=== PATIENT | male | born 1990 | race Two or more races ===

== ENCOUNTER 2022-05-08 12:06 | Emergency (ER) | payer OTHER, SELFPAY ==
--- NOTE | ~2022-05-08 | XR_ITS ---
EXAMINATION: XR KNEE, RIGHT CLINICAL INFORMATION: Right knee pain. COMPARISON: None available. TECHNIQUE: Four views of the right knee. FINDINGS: Bones and soft tissues are normal. No fracture or joint effusion. Alignment is anatomic. Joint spaces are well maintained. No abnormal soft tissue calcification. XR/XR knee RT 4V IMPRESSION: Unremarkable right knee.
--- NOTE | ~2022-05-08 | US_ITS ---
EXAMINATION: US VENOUS ULTRASOUND WITH DOPPLER LOWER EXTREMITY, RIGHT CLINICAL INFORMATION: Severe popliteal pain. COMPARISON: None available. TECHNIQUE: Ultrasound of the deep veins is performed from the hip to the calf with compression sonography and color and pulse Doppler assessment. Spectral analysis with color-flow imaging is performed. FINDINGS: There is normal venous compression and respiratory variation and augmented flow. The visualized common femoral vein, superficial femoral vein, profunda femoral vein, popliteal vein, and the trifurcation region shows no evidence of deep venous thrombosis. No right popliteal cyst. The soft tissues are unremarkable. If the patient's symptoms persist, followup ultrasound in 5 days 7 days might be of value to exclude proximal propagation from a non-visualized calf vein. US/US venous duplex LE RT IMPRESSION: No evidence for deep venous thrombosis in the visualized veins of the right lower extremity.
[2022-05-08 12:15] VITALS: BP 117/77; RESP 20; TEMP 36.8; O2SAT 16; BMI 31.7
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
[2022-05-08 12:59] VITALS: BP 106/69; PULSE 90; RESP 14; TEMP 36.8; O2SAT 98
[2022-05-08] MEDS: Ibuprofen 600 MG TABLET PO (13:06)
[2022-05-08] MEDS: oxyCODONE HCl Immed Release 5 MG TABLET PO ×2 (13:06→13:24)
[2022-05-08] MEDS: Acetaminophen 325 MG TABLET 975 MG PO (13:24)
== END 2022-05-08 16:24 | disposition home or self-care (01) ==
PROVIDERS: Emergency Provider Emergency Medicine
DX: S89.91XA Unspecified injury of right lower leg, initial encounter (principal); R60.0 Localized edema; R42 Dizziness and giddiness; W01.0XXA Fall on same level from slipping, tripping and stumbling without subsequent striking against object, initial encounter; Y93.9 Activity, unspecified; Y92.9 Unspecified place or not applicable; Y99.9 Unspecified external cause status
CPT/HCPCS: 73564; 93971; 99283; 99284

== ENCOUNTER 2022-05-29 07:37 | Outpatient (REF) | payer OTHER, SELFPAY | END 2022-05-29 07:38 | disposition home or self-care (01) | LOC: HO.HOSX 07:37 | PROVIDERS: Visit Provider Physician Assistant | DX: Z13.89 Encounter for screening for other disorder (principal) ==

== ENCOUNTER 2024-05-03 06:49 | Emergency (ER) | payer MEDICAID, SELFPAY ==
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
[2024-05-03 06:56] VITALS: BP 132/80; PULSE 99; RESP 20; TEMP 36.5; O2SAT 95; BMI 33.4
[2024-05-03 07:14] LABS: MANUAL DIFF FLAG NO
[2024-05-03 07:18] LABS: Basophils Absolute Auto 0.1 X10*3/uL (0.0-0.2); Basophils Percent Auto 0.6 % (0-2); Eosinophils Absolute Auto 0.3 X10*3/uL (0.0-0.4); Eosinophils Percent Auto 2.8 % (0-4); Hematocrit 43.8 % (42.0-52.0); Hemoglobin 15.6 g/dl (14.0-18.0); Imm Gran Abs Auto 0.03 X10*3/uL (0.00-0.03); Imm Gran Pct Auto 0.3 % (0.0-0.4); Lymphocytes Absolute Auto 3.6 X10*3/uL (1.2-4.9); Lymphocytes Percent Auto 30.4 % (20-40); Mean Corpuscular HGB Conc 35.6 g/dl (31.0-36.0); Mean Corpuscular Hemoglobin 32.3 pg (27.0-33.0); Mean Corpuscular Volume 90.7 fL (80.0-98.0); Mean Platelet Volume 9.4 fL (9.4-12.4); Monocytes Absolute Auto 0.9 X10*3/uL (0.1-1.2); Monocytes Percent Auto 7.8 % (2-11); Neutrophils Percent Auto 58.1 % (45-73); Platelet Count 404 X10*3/uL (160-400); Red Blood Count 4.83 X10*6/uL (4.60-5.80); Red Cell Distribution Width 13.3 % (11.0-16.0)
[2024-05-03 07:37] LABS: Alanine Aminotransferase 49 U/L (0-40); Albumin Level 4.1 g/dL (3.5-5.0); Alkaline Phosphatase 31 U/L (39-117); Anion Gap 13 (12-20); Aspartate Amino Transferase 22 U/L (5-37); Bilirubin Direct 0.1 mg/dL (0.0-0.5); Bilirubin Total 0.3 mg/dL (0.0-1.0); Blood Urea Nitrogen 12 mg/dL (9-16); Calcium 9.5 mg/dL (8.4-10.2); Carbon Dioxide 26 mmol/L (22-29); Chloride 104 mmol/L (96-108); Creatinine Clr Calc Pharmacy 156.8; Estimated Glomerular Filt Rate > 60; Glucose Random 91 mg/dL (60-115); Lipase 7 U/L (8-78); Potassium 3.8 mmol/L (3.3-5.1); Sodium 139 mmol/L (135-145); Total Protein 6.8 g/dL (6.5-8.0)
[2024-05-03 08:57] VITALS: BP 138/83; PULSE 97; RESP 22; TEMP 36.6; O2SAT 99
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
[2024-05-03] MEDS: ondansetron HCL 4 MG/2 ML VIAL IVPUSH (09:34)
[2024-05-03] MEDS: HYDROmorphone HCl 0.5 MG/0.5 ML SYRINGE IVPUSH (09:34)
--- NOTE | 2024-05-03 09:36 | PC.NURSE ---
20gIV placed in the right AC - labs obtained/sent to lab. IVF/medication administered per provider order. effectiveness pending.
[2024-05-03] MEDS: 0.9 % Sodium Chloride 1,000 ML 999 ML IV (09:42)
[2024-05-03 10:12] LABS: Lactic Acid 1.8 mmol/L (0.5-2.0)
--- NOTE | 2024-05-03 10:40 | PC.NURSE ---
pt to CT at this time.
[2024-05-03] MEDS: iohexoL 350 MG/ML 100 ML INFUS..BTL IV (10:58)
[2024-05-03 11:50] LABS: Appearance Urine Clear; Color Urine Yellow; Glucose Urine UA Negative (Negative); Leukocyte Esterase Urine Small (1+) (Negative); Nitrite Urine Negative (Negative); Specific Gravity - Urine 1.025 (1.005-1.025); UMIC TRIGGER UACC YES; Urine Blood Negative (Negative); Urine Ketones Negative (Negative); Urine Protein Negative (Neg-Trace)
[2024-05-03 11:56] LABS: Bacteria Urine None Seen (None Seen); Hyaline Casts Urine 0-2 /LPF (0-2); RBC Urine 0-2 /HPF (0-2); Squamous Epithelial Cell Urine 0-2 /HPF (0-2); UACC Culture Trigger YES
[2024-05-03 12:30] VITALS: BP 119/69; PULSE 69; RESP 16; TEMP 36.6; O2SAT 97
[2024-05-03 13:34] VITALS: BP 119/69; PULSE 69; RESP 16; TEMP 36.6; O2SAT 97
== END 2024-05-03 13:40 | disposition home or self-care (01) ==
PROVIDERS: Emergency Provider Emergency Medicine Emergency Medical Services; PCP Physician Assistant
DX: K43.9 Ventral hernia without obstruction or gangrene (principal); R10.13 Epigastric pain; R11.2 Nausea with vomiting, unspecified
CPT/HCPCS: 36415; 74177; 80053; 81001; 82248; 83605; 83690; 85025; 87086; 96361; 96374; 96375; 99284; J1171; J2405; Q9967

== ENCOUNTER → 2024-05-03 09:18 | Outpatient (BNV) | payer MEDICAID, SELFPAY | PROVIDERS: Emergency Provider Emergency Medicine Emergency Medical Services; PCP Physician Assistant; Visit Provider Radiology Diagnostic Radiology | DX: K43.9 Ventral hernia without obstruction or gangrene (principal) | CPT/HCPCS: 74177 ==

== ENCOUNTER 2024-05-09 13:56 | Outpatient (AMB) | payer MEDICAID, SELFPAY ==
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
--- OUTSIDE RECORDS SUMMARY | 2024-05-09 15:44 | XMS_ITS | Clinical Summary ---
Author Organization [facility] Address [address] [place] [address] Care Team Providers Care Oracle Pl Sql Developer Name Role Phone Jarred Hemphill Primary Care Provider [phone] Source Comments PLEASE NOTE, if this patient is a minor, it may be UNLAWFUL to discuss sensitive information that is contained in these records (such as FAMILY PLANNING, MENTAL HEALTH or SUBSTANCE ABUSE) with the minor patient's parent or other person without the patient's specific authorization.[facility] Allergies Active Allergy Reactions Criticality Noted Date Comments Cephalexin Swelling High 08/02/2015 Medications albuterol HFA 90 mcg/actuation inhalerIndicatio ns:Mild intermittent asthma without complication Inhale 2 Puffs into the lungs every 4 (four) hours as needed for shortness of breath or wheezing 18 g 5 5 Active fluticasone (FLOVENT) 110 mcg/actuation inhalerIndicatio ns:Mild intermittent asthma without complication Inhale 1 Puff into the lungs 2 (two) times daily 12 g 2 5 Active montelukast (SINGULAIR) 10 mg tabletIndication s:Mild intermittent asthma without complication Take 1 Tablet by mouth nightly at bedtime 30 Tablet 5 5 Active hydrOXYzine HCL (ATARAX) 25 mg tabletIndication s:PTSD (post-traumatic stress disorder),Depres galileo with anxiety Take 1 Tablet by mouth 3 (three) times daily as needed for anxiety 180 Tablet 1 5 Active prazosin (MINIPRESS) 1 mg capsuleIndicatio ns:PTSD (post-traumatic stress disorder),Depres galileo with anxiety Take 1 Capsule by mouth nightly at bedtime 90 Capsule 1 5 Active sertraline (ZOLOFT) 50 mg tabletIndication s:PTSD (post-traumatic stress disorder),Depres galileo with anxiety Take 1 Tablet by mouth once daily 90 Tablet 1 5 Active traZODone (DESYREL) 50 mg tabletIndication s:Post traumatic stress disorder (PTSD) Take 1 Tablet by mouth nightly at bedtime 90 Tablet 2 5 Active cyclobenzaprine (FLEXERIL) 10 mg tabletIndication s:Ventral hernia without obstruction or gangrene Take 1 Tablet by mouth 3 (three) times daily as needed for muscle spasms for up to 7 days 21 Tablet 5 05/11/19 25 Active albuterol sulfate 90 mcg/actuation inhalerIndicatio ns:Mild intermittent asthma without complication Inhale 2 Puffs into the lungs every 4 (four) hours as needed for shortness of breath or wheezing 18 g 5 2 05/04/19 25 Discontin ued(Reord er (E-Cancel Not Sent)) fluticasone propionate (FLOVENT HFA) 110 mcg/actuation inhalerIndicatio ns:Mild intermittent asthma without complication Inhale 1 Puff into the lungs 2 (two) times daily 12 g 2 2 05/04/19 25 Discontin ued(Reord er (E-Cancel Not Sent)) montelukast (SINGULAIR) 10 mg tabletIndication s:Mild intermittent asthma without complication Take 1 Tablet by mouth nightly at bedtime 30 Tablet 5 2 05/04/19 25 Discontin ued(Reord er (E-Cancel Not Sent)) hydrOXYzine HCL (ATARAX) 25 mg tabletIndication s:PTSD (post-traumatic stress disorder),Depres galileo with anxiety Take 1 Tablet by mouth 3 (three) times daily as needed for anxiety 180 Tablet 1 3 05/04/19 25 Discontin ued(Reord er (E-Cancel Not Sent)) sertraline (ZOLOFT) 50 mg tabletIndication s:PTSD (post-traumatic stress disorder),Depres galileo with anxiety Take 1 Tablet by mouth once daily 90 Tablet 1 3 05/04/19 25 Discontin ued(Reord er (E-Cancel Not Sent)) prazosin (MINIPRESS) 1 mg capsuleIndicatio ns:PTSD (post-traumatic stress disorder),Depres galileo with anxiety Take 1 Capsule by mouth nightly at bedtime 90 Capsule 1 3 05/04/19 25 Discontin ued(Reord er (E-Cancel Not Sent)) traZODone (DESYREL) 50 mg tabletIndication s:Post traumatic stress disorder (PTSD) Take 1 Tablet by mouth nightly at bedtime 90 Tablet 2 4 05/04/19 25 Discontin ued(Reord er (E-Cancel Not Sent)) Active Problems Problem Noted Date Diagnosed Date Mild intermittent asthma 08/02/2015 Encounters Date Type Department Care Team Description 05/03/2024 4:00 PM EDT Office Visit [facility] [address] [place] [address] Jarred Hemphill PA Ventral hernia without obstruction or gangrene (Primary Dx); Mild intermittent asthma without complication; PTSD (post-traumatic stress disorder); Depression with anxiety; Post traumatic stress disorder (PTSD) from Last 3 Months Family History Medical History Relation Name Comments Asthma Father Heart Problems Father Diabetes Maternal Grandmother Diabetes Maternal Uncle Diabetes Mother Relation Name Status Comments Father Maternal Grandmother Maternal Uncle Mother Alive Social History Tobacco Use Types Packs/Day Years Used Date Smoking Tobacco: Some Days Smokeless Tobacco: Never Tobacco Cessation:Ready to Q uit: Not Asked; Counseling Given: Not Answered Alcohol Use Standard Drinks/Week Comments Yes 0 (1 standard drink = 0.6 oz pur e alcohol) occ Social Connections Answer Date Recorded Connectedness 0 07/30/2021 Financial Resource Strain Answer Date R ecorded Financial Resource Strain 0 2021 Stress Answer Date Recorded Stress 0 07/30/2021 Physical Activity Answer Date Recorded Physical Activity 0 10/03/2018 Food Insecurity Answer Date Recorded Food 0 07/30/2021 Transportation Needs Answer Date Record ed Transportation 0 07/30/2021 Housing Stability Answer Date Recorded Housing 0 07/30/2021 Safety and Environment Answer Date Derian rded Safety 0 07/30/2021 Utilities Answer Date Recorded Utilities 0 07/30/2021 Employment Answer Date Recorded Employment 0 10/03/2018 Sex and Gender Information Value Date Recorded Sex Assigned at Male 02/05/2018 6:48 AM PST Legal Sex Male 12:52 PM PDT Gender Identity Male 02/05/2018 6:48 AM PST Sexual Orientation Straight 02/05/2018 6: 48 AM PST Occupation Industry Job Start Date Job End Date Not on file Not on file Not on file Not on file Last Filed Vital Signs Vital Sign Reading Time Taken Comments Blood Pressure 110/70 05/03/2024 4:13 PM EDT Pulse 72 05/03/2024 4:13 PM EDT Temperature 36.8 ??C (98.3 ??F) 05/03/2024 4:13 PM ED T Respiratory Rate 16 05/03/2024 4:13 PM EDT Oxygen Saturation 96% 05/03/2024 4:13 PM EDT Inhaled Oxygen Concentration - - Weight 107.5 kg (237 lb) 05/03/2024 4:13 PM EDT Height 172.7 cm (5' 8 ) 05/03/2024 4:13 PM EDT Body Mass Index 36.04 05/03/2024 4:13 PM EDT Plan of Treatment Health Maintenance Due Date Last Done Comments Anxiety Screening 1989 Hepatitis C Screening 1989 HIV Screening 2004 Imm-DTaP/Tdap/Td (1 - Tdap) 2008 Imm-Hepatitis B (1 of 3 - 19 + 3-dose series) 2008 Imm-Pneumococcal (1 of 2 - PCV) 2008 Diabetes Screening 02/05/2021 02/05/2018 Lipid Screening 02/05/2021 02/05/2018 Annual Preventive Care Visit 07/30/2022 07/30/2021, 02/05/2018 Tobacco Cessation Counseling (#1) 08/05/2023 022 [id number] ( season) 2023 022, 02/21/2021 Imm-Influenza (#1) 2023 Alcohol and Drug Screen 02/10/2024 08/06/19 23, 07/30/2021, 07/30/2021, Additional history exists Depression Monitoring 08/03/2024 05/03/2024 , 08/05/2022, 07/30/2021, Additional history exists Hypertension Screening (#1) 05/03/2025 Procedures Procedure Name Priority Date/Time Associated Diagnosis Comments IMAGING SCANNED DOCUMENT 05/03/2024 3:00 AM EDT IMAGING SCANNED DOCUMENT 05/03/2024 3:00 AM EDT COMPREHENSIVE METABOLIC PANEL Routine 02/05/2018 10:15 AM EST Constipation, unspecified constipation type LIPID PANEL Routine 02/05/2018 10:15 AM EST Constipation, unspecified constipation type from Last 3 Months or Most Recently Relevant to Health Maintenance Results * IMAGING SCANNED DOCUMENT (05/03/2024 3:00 AM EDT) Only the most recent of2 resultswithin the time period is included. 05/03/2024 3:00 AM EDT us Jarred MORA SCAN IMAGING Final Result * (ABNORMAL) LIPID PANEL (02/05/2018 10:15 AM EST) CHOLESTEROL 212(H) 0 - 200 mg/dL [facility] HDL CHOLESTEROL 49 >40 mg/dL [facility] TC-HDLC RATIO 4.3 0 - 4.4 mg/dL [facility] TRIGLYCERIDES 122 0 - 150 mg/dL [facility] LDL CALCULATED 139(H) 0 - 100 mg/dL [facility] Blood specimen (specimen) Blood / Unknown 02/05/2018 10:15 AM EST 02/05/2018 10:25 AM EST Narrative [facility] - 02/05/2018 2:06 PM EST [employer], [place] [address] Cashier General - Beverley Wolf MD PT ID [id number] ORD# [id number] us Jarred MORA LAB - BLOOD DRAW [place] [address], * (ABNORMAL) COMPRE METAB PANEL (02/05/2018 10:15 AM EST) GLUCOSE 127(H) 70 - 100 mg/dL [facility] Comment:Reference range appl icable to fasting specimens only BUN 14 5 - 25 mg/dL [facility] CREAT 1.03 0.7 - 1.3 mg/dL [facility] GLOMERULAR FILTRATION RATE > 60 [facility] Comment: If patient is -Albanian, multiply result by 1.21 Chronic Kidney Disease: < 60 ml/min/1.73 square meters Kidney Failure: < 15 ml/min/1.73 square meters SODIUM 141 133 - 145 mmol/L [facility] POTASSIUM 3.9 3.5 - 5.5 mmol/L [facility] CHLORIDE 104 96 - 110 mmol/L [facility] CO2 28 21 - 32 mmol/L [facility] ANION GAP 9 3 - 11 [facility] CALCIUM 9.1 8.5 - 10.5 mg/dL [facility] ALBUMIN 3.8 3.2 - 5.0 G/dL [facility] SGPT 21 10 - 60 U/L [facility] ALK PHOS 36(L) 42 - 121 U/L [facility] TOTAL PROTEIN 6.8 6.0 - 8.0 G/dL [facility] BILI, TOTAL 0.3 0.0 - 1.4 mg/dL [facility] SGOT 7(L) 10 - 42 U/L [facility] Blood specimen (specimen) Blood / Unknown 02/05/2018 10:15 AM EST 02/05/2018 10:25 AM EST Narrative [facility] - 02/05/2018 2:06 PM EST [facility] [employer], [place] [address] Cashier General - Beverley Wolf MD PT ID [id number] ORD# [id number] Jarred MORA LAB - BLOOD DRAW Edited Result - Final [facility] [address] [place] [address], from Last 3 Months or Most Recently Relevant to Health Maintenance Insurance [place] [employer] [facility] [employer] [address] ACO Care Teams Oracle Pl Sql Developer Relationship Specialty Start Date End Date Jarred Hemphill PA [address] [place] [address] PCP - General Internal Medicine 01/05/18
== END 2024-05-09 14:23 | disposition home or self-care (01) ==
PROVIDERS: PCP Physician Assistant; Visit Provider Surgery
DX: K43.6 Other and unspecified ventral hernia with obstruction, without gangrene (principal)
CPT/HCPCS: 99204

== ENCOUNTER → 2024-05-09 13:56 | Outpatient (BNVA) | payer MEDICAID, SELFPAY | PROVIDERS: PCP Physician Assistant; Visit Provider Surgery | DX: K43.6 Other and unspecified ventral hernia with obstruction, without gangrene (principal) | CPT/HCPCS: 99202 ==

== ENCOUNTER 2024-05-27 06:39 | Day surgery (SDC) | payer MEDICAID, SELFPAY ==
--- OUTSIDE RECORDS SUMMARY | 2024-05-13 09:36 | XMS_ITS | Clinical Summary ---
Author Organization [facility] Address [address] [place] [address] Care Team Providers Care Financial Analysis Consultant Name Role Phone Jarred Hemphill Primary Care Provider [phone] Source Comments PLEASE NOTE, if this patient [...] mcg/actuation inhalerIndicatio ns:Mild intermittent asthma without complication (HHS-HCC) Inhale 2 Puffs into the lungs every 4 (four) hours as needed for shortness of breath or wheezing 18 g 5 5 Active fluticasone (FLOVENT) 110 mcg/actuation inhalerIndicatio ns:Mild intermittent asthma without complication (HHS-HCC) Inhale 1 Puff into the lungs 2 (two) times daily 12 g 2 5 Active montelukast (SINGULAIR) 10 mg tabletIndication s:Mild intermittent asthma without complication (HHS-HCC) Take 1 Tablet by mouth nightly at [...] at bedtime 90 Tablet 2 5 Active albuterol sulfate 90 mcg/actuation inhalerIndicatio ns:Mild intermittent asthma without complication (HHS-HCC) Inhale 2 Puffs into the lungs every 4 (four) hours as needed for shortness of breath or wheezing 18 g 5 2 025 Discontinu ed(Reorder (E-Cancel Not Sent)) fluticasone propionate (FLOVENT HFA) 110 mcg/actuation inhalerIndicatio ns:Mild intermittent asthma without complication (HHS-HCC) Inhale 1 Puff into the lungs 2 (two) times daily 12 g 2 2 025 Discontinu ed(Reorder (E-Cancel Not Sent)) montelukast (SINGULAIR) 10 mg tabletIndication s:Mild intermittent asthma without complication (HHS-HCC) Take 1 Tablet by mouth nightly at bedtime 30 Tablet 5 2 025 Discontinu ed(Reorder (E-Cancel Not Sent)) hydrOXYzine HCL (ATARAX) 25 mg tabletIndication s:PTSD (post-traumatic stress disorder),Depres galileo with anxiety Take 1 Tablet by mouth 3 (three) times daily as needed for anxiety 180 Tablet 1 3 025 Discontinu ed(Reorder (E-Cancel Not Sent)) sertraline (ZOLOFT) 50 mg tabletIndication s:PTSD (post-traumatic stress disorder),Depres galileo with anxiety Take 1 Tablet by mouth once daily 90 Tablet 1 3 025 Discontinu ed(Reorder (E-Cancel Not Sent)) prazosin (MINIPRESS) 1 mg capsuleIndicatio ns:PTSD (post-traumatic stress disorder),Depres galileo with anxiety Take 1 Capsule by mouth nightly at bedtime 90 Capsule 1 3 025 Discontinu ed(Reorder (E-Cancel Not Sent)) traZODone (DESYREL) 50 mg tabletIndication s:Post traumatic stress disorder (PTSD) Take 1 Tablet by mouth nightly at bedtime 90 Tablet 2 4 025 Discontinu ed(Reorder (E-Cancel Not Sent)) cyclobenzaprine (FLEXERIL) 10 mg tabletIndication s:Ventral hernia without obstruction or gangrene Take 1 Tablet by mouth 3 (three) times daily as needed for muscle spasms for up to 7 days 21 Tablet 5 025 Active Problems Problem Noted Date Diagnosed Date Mild intermittent asthma ([facility]) 08/02/2015 Encounters Date Type Department Care Team Description 05/03/2024 4:00 PM EDT Office Visit [facility] [id number] [place] [address] Jarred Hemphill PA Ventral hernia without obstruction [...] 02/05/2018 Tobacco Cessation Counseling (#1) 08/05/2023 022 [id number] ( season) 2023 022, 02/21/2021 Imm-Influenza (#1) [...] period is included. 05/03/2024 3:00 AM EDT Jarred MORA SCAN IMAGING Final Result * (ABNORMAL) LIPID PANEL (02/05/2018 10:15 AM EST) CHOLESTEROL 212(H) 0 - 200 mg/dL [facility] HDL CHOLESTEROL 49 >40 mg/dL [facility] TC-HDLC RATIO 4.3 0 - 4.4 mg/dL [facility] TRIGLYCERIDES 122 0 - 150 mg/dL [facility] LDL CALCULATED 139(H) 0 - 100 mg/dL [facility] Blood specimen (specimen) Blood / Unknown 02/05/2018 10:15 AM EST 02/05/2018 10:25 AM EST Narrative [facility] - 02/05/2018 2:06 PM EST [employer], a member of [address] [address] Ground Host/Hostess - Beverley Wolf MD PT ID [id number] ORD# [id number] Jarred MORA LAB - BLOOD DRAW Edited Result - Final [facility] [address] [place] [address], * (ABNORMAL) COMPRE METAB PANEL (02/05/2018 10:15 AM EST) GLUCOSE 127(H) 70 - 100 mg/dL [facility] Comment:Reference range appl icable to fasting specimens only BUN 14 5 - 25 mg/dL [facility] CREAT 1.03 0.7 - 1.3 mg/dL [facility] GLOMERULAR FILTRATION RATE > 60 [facility] Comment: If patient is -Ghanaian, multiply result by 1.21 Chronic Kidney Disease: < 60 ml/min/1.73 square meters Kidney Failure: < 15 ml/min/1.73 square meters SODIUM 141 133 - 145 mmol/L [facility] POTASSIUM 3.9 3.5 - 5.5 mmol/L [facility] CHLORIDE 104 96 - 110 mmol/L [facility] CO2 28 21 - 32 mmol/L [facility] ANION GAP 9 3 - 11 [facility] CALCIUM 9.1 8.5 - 10.5 mg/dL [facility] ALBUMIN 3.8 3.2 - 5.0 G/dL [facility] SGPT 21 10 - 60 U/L [facility] ALK PHOS 36(L) 42 - 121 U/L [facility] TOTAL PROTEIN 6.8 6.0 - 8.0 G/dL [facility] BILI, TOTAL 0.3 0.0 - 1.4 mg/dL [facility] SGOT 7(L) 10 - 42 U/L [facility] Blood specimen (specimen) Blood / Unknown 02/05/2018 10:15 AM EST 02/05/2018 10:25 AM EST Narrative [facility] - 02/05/2018 2:06 PM EST [facility] [employer], a member of [address] [address] Ground Host/Hostess - Beverley Wolf MD PT ID [id number] ORD# [id number] Jarred MORA LAB - BLOOD DRAW Edited Result - Final [facility] [address] [place] [address], [place] [phone] from Last 3 Months or Most Recently Relevant to Health Maintenance Insurance [facility] [employer] [address] A[employer] Care Teams Financial Analysis Consultant Relationship Specialty Start Date End Date Jarred Hemphill PA [address] [place] [address] PCP - General Internal Medicine 01/05/18
[2024-05-25 07:54] VITALS: BMI 36.0
--- NOTE | 2024-05-26 09:56 | MHC.SHP ---
Pre-Procedural Eval Section A - 24 Hr Update-Section A only Date of Service: 05/27/24 The patient is an INPATIENT: No Changes since office visit: No Cold of Flu in the past 2 weeks, No New Medical Problems, No Changes in Medication and No Patient answered all questions Section B - Complete if H&P > 30 days Chief Complaint: Other and unspecified ventral hernia with obstruct Allergies: Allergies Allergy/AdvReac Type Severity Reaction Status Date / Time cephalexin [From KEFLEX] Allergy Unknown THROAT Verified 05/09/24 14:02 SWELLING/FEVER shellfish derived Allergy Unknown DIFFICULTY Verified 05/09/24 14:02 [SHELLFISH DERIVED] BREATHING shellfish Allergy Unknown anaphylaxis Uncoded 05/09/24 14:02 Plan I have reviewed the history and physical and performed a pertinent physical examination on my patient. No changes have occurred unless specified. Time Spent With Patient Time: Total time managing care of this patient today ____ minutes.
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
[2024-05-27] VITALS (11 sets, daily range): BP systolic 107–128; BP diastolic 65–83; PULSE 71–87; RESP 11–20; TEMP 36.9–37.1; O2SAT 92–100; BMI 36.2
[2024-05-27] MEDS: Lactated Ringers 1,000 ML 100 ML IVCONT (07:15)
[2024-05-27 07:42] LABS: Amphetamine Screen Urine Not Detected (Not Detect); Barbiturates, Urine Not Detected (Not Detect); Benzodiazepines Screen Urine Not Detected (Not Detect); Buprenorphine Scr Not Detected (Not Detect); Cannabinoid Screen Urine POSITIVE (Not Detect); Cocaine Screen Urine POSITIVE (Not Detect); Fentanyl, urine Not Detected (Not Detect); Methadone Screen, Urine Not Detected (Not Detect); Opiate Screen Urine Not Detected (Not Detect); Oxycodone Screen Urine Not Detected (Not Detect); Phencyclidine Screen Urine Not Detected (Not Detect)
[2024-05-27] MEDS: Clindamycin Phosphate/D5W 900 MG/50 ML PIGGYBACK 50 MG IV (09:05)
[2024-05-27] MEDS: fentaNYL citrate/PF 100 MCG/2 ML VIAL 25 MCG IVPUSH ×4 (09:45→10:00)
--- NOTE | 2024-05-27 09:48 | P.OP_ITS ---
Operative Note Operative Note Date of Service: 05/27/24 Narrative: Preoperative diagnosis: [] Incarcerated supraumbilical ventral incisional hernia Postop diagnosis: [] The same Procedure [] open incisional incarcerated ventral herniorrhaphy with Bard Phasix mesh. Defect measured roughly 4 cm in size Surgeon: [] [employer] Hardware Analyst: [] Keyur Type of Anesthesia: [] General Indication for surgery: [] Corpulent abdomen. Incarcerated supraumbilical ventral incisional hernia with omental contents. Findings: [] Patient brought to the operating room, placed on operative table supine position, after an adequate level of general anesthesia was induced, the patient's abdomen is prepped and draped in usual sterile fashion using a longitudinal incision over the hernia in question with the previous scar from the patient's prior surgery, this carried down through skin, subcutaneous tissue, were large hernia sac was identified, circumferentially dissected down through fascia and opened. Sac and incarcerated omentum were amputated. Fascia margins were circumferentially cleared. Appropriately sized dual Bard Phasix mesh was placed in the superficial layer of the mesh circumferentially sutured to the surrounding fascia using interrupted 0 Ethibond suture. At completion of procedure, mesh was in good position with no gaps or tension. Wound was irrigated, secured hemostasis, and closed in the following manner; subcutaneous tissue was reapproximated using interrupted 3-0 Vicryl suture. Skin was closed using interrupted inverted dermal 3-0 Vicryl sutures followed by Steri-Strips and sterile dressings. Wound was infiltrated 0.5% Marcaine/1% lidocaine at completion. Sponge, needle, and instrument counts were reported correct. Patient tolerated the procedure well and emerged from anesthesia stable condition. EBL minimal
[2024-05-27] MEDS: HYDROmorphone HCl 0.5 MG/0.5 ML SYRINGE 0.25 MG IVPUSH (10:05)
[2024-05-27] MEDS: oxyCODONE HCl Immed Release 5 MG TABLET PO (10:10)
== END 2024-05-27 11:00 | disposition home or self-care (01) ==
PROVIDERS: Anesthesiology; PCP Physician Assistant; Visit Provider Surgery
PROC: (CPT 49594; principal; 2024-05-27 08:30)
DX: K43.0 Incisional hernia with obstruction, without gangrene (principal); E65 Localized adiposity; Z91.013 Allergy to seafood; K59.00 Constipation, unspecified; J40 Bronchitis, not specified as acute or chronic; Z79.899 Other long term (current) drug therapy; Z88.1 Allergy status to other antibiotic agents; Z87.828 Personal history of other (healed) physical injury and trauma; Z18.10 Retained metal fragments, unspecified; F12.90 Cannabis use, unspecified, uncomplicated; F14.90 Cocaine use, unspecified, uncomplicated; F17.210 Nicotine dependence, cigarettes, uncomplicated; Z98.890 Other specified postprocedural states
CPT/HCPCS: 49594; 80307; 88302; C1781; J0736; J1100; J1171; J1885; J2003; J2250; J2405; J2704; J2795; J3010

== ENCOUNTER → 2024-05-27 06:39 | Outpatient (BNV) | payer MEDICAID, SELFPAY | PROVIDERS: PCP Physician Assistant; Visit Provider Surgery | DX: K44.0 Diaphragmatic hernia with obstruction, without gangrene (principal) | CPT/HCPCS: 49594 ==

== ENCOUNTER 2024-06-06 11:42 | Outpatient (AMB) | payer MEDICAID, SELFPAY ==
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
[2024-06-06 11:55] VITALS: BP 131/65; PULSE 78
--- OUTSIDE RECORDS SUMMARY | 2024-06-06 14:03 | XMS_ITS | Clinical Summary ---
Author Organization [facility] Address [address] [place] [address] Care Team Providers Care Linoleum Printer Name Role Phone Jarred Hemphill Primary Care Provider [phone] Source Comments PLEASE NOTE, if this patient is a minor, it may be UNLAWFUL to discuss sensitive information that is contained in these records (such as FAMILY PLANNING, MENTAL HEALTH or SUBSTANCE ABUSE) with the minor patient's parent or other person without the patient's specific authorization.[facility] Allergies Active Allergy Reactions Criticality Noted Date Comments Cephalexin Swelling High 08/02/2015 Medications albuterol HFA 90 mcg/actuation inhalerIndication s:Mild intermittent asthma without complication (HHS-HCC) Inhale 2 Puffs into the lungs every 4 (four) hours as needed for shortness of breath or wheezing 18 g 5 5 Active fluticasone (FLOVENT) 110 mcg/actuation inhalerIndication s:Mild intermittent asthma without complication (HHS-HCC) Inhale 1 Puff into the lungs 2 (two) times daily 12 g 2 5 Active montelukast (SINGULAIR) 10 mg tabletIndications :Mild intermittent asthma without complication (HHS-HCC) Take 1 Tablet by mouth nightly at bedtime 30 Tablet 5 5 Active hydrOXYzine HCL (ATARAX) 25 mg tabletIndications :PTSD (post-traumatic stress disorder),Depress ion with anxiety Take 1 Tablet by mouth 3 (three) times daily as needed for anxiety 180 Tablet 1 5 Active prazosin (MINIPRESS) 1 mg capsuleIndication s:PTSD (post-traumatic stress disorder),Depress ion with anxiety Take 1 Capsule by mouth nightly at bedtime 90 Capsule 1 5 Active sertraline (ZOLOFT) 50 mg tabletIndications :PTSD (post-traumatic stress disorder),Depress ion with anxiety Take 1 Tablet by mouth once daily 90 Tablet 1 5 Active traZODone (DESYREL) 50 mg tabletIndications :Post traumatic stress disorder (PTSD) Take 1 Tablet by mouth nightly at bedtime 90 Tablet 2 5 Active cyclobenzaprine (FLEXERIL) 10 mg tabletIndications :Ventral hernia without obstruction or gangrene Take 1 Tablet by mouth 3 (three) times daily as needed for muscle spasms for up to 7 days 21 Tablet 5 05/11/19 25 Active Problems Problem Noted Date Diagnosed Date Mild intermittent asthma (HHS-HCC) 08/02/2015 Encounters Date Type Department Care Team Description 05/03/2024 4:00 PM EDT Office Visit [facility] [id number] [place] [address] Jarred Hemphill PA Ventral hernia [...] 02/05/2018 Tobacco Cessation Counseling (#1) 08/05/2023 022 [id number] ( season) 2023 022, 02/21/2021 Imm-Influenza (#1) [...] EST) CHOLESTEROL 212(H) 0 - 200 mg/dL [facility] HDL CHOLESTEROL 49 >40 mg/dL [facility] TC-HDLC RATIO 4.3 0 - 4.4 mg/dL [facility] TRIGLYCERIDES 122 0 - 150 mg/dL [facility] LDL CALCULATED 139(H) 0 - 100 mg/dL [facility] Blood specimen (specimen) Blood / Unknown 02/05/2018 10:15 AM EST 02/05/2018 10:25 AM EST Narrative [facility] - 02/05/2018 2:06 PM EST [employer], a member of [address] [address] Agricultural Technical Officer - Beverley Wolf MD PT ID [id number] ORD# [id number] us Jarred [facility]OR[facility] - BLOOD DRAW Edited Result - Final [facility] [address] [address], * (ABNORMAL) COMPRE METAB PANEL (02/05/2018 10:15 AM EST) GLUCOSE 127(H) 70 - 100 mg/dL [facility] Comment:Reference range appl icable to fasting specimens only BUN 14 5 - 25 mg/dL [facility] CREAT 1.03 0.7 - 1.3 mg/dL [facility] GLOMERULAR FILTRATION RATE > 60 [facility] Comment: If patient is -Martiniquais, multiply result by 1.21 Chronic Kidney Disease: < 60 ml/min/1.73 square meters Kidney Failure: < 15 ml/min/1.73 square meters SODIUM 141 133 - 145 mmol/L [facility] POTASSIUM 3.9 3.5 - 5.5 mmol/L [facility] CHLORIDE 104 96 - 110 mmol/L [facility] CO2 28 21 - 32 mmol/L [facility] ANION GAP 9 3 - 11 [facility] CALCIUM 9.1 8.5 - 10.5 mg/dL [facility] ALBUMIN 3.8 3.2 - 5.0 G/dL [facility] SGPT 21 10 - 60 U/L [facility] ALK PHOS 36(L) 42 - 121 U/L [facility] TOTAL PROTEIN 6.8 6.0 - 8.0 G/dL [facility] BILI, TOTAL 0.3 0.0 - 1.4 mg/dL [facility] SGOT 7(L) 10 - 42 U/L [facility] Blood specimen (specimen) Blood / Unknown 02/05/2018 10:15 AM EST 02/05/2018 10:25 AM EST Narrative [facility] - 02/05/2018 2:06 PM EST [facility] [email or web address], [place] [address] Agricultural Technical Officer - Beverley Wolf MD PT ID [id number] ORD# [id number] Jarred [facility] - BLOOD DRAW Edited Result - Final [facility] [address] [place] [address], from Last 3 Months or Most Recently Relevant to Health Maintenance Insurance [place] [employer] [facility] [employer] [address] ACO Care Teams Linoleum Printer Relationship Specialty Start Date End Date Jarred Hemphill PA [address] [place] [address] PCP - General Internal Medicine 01/05/18
== END 2024-06-06 12:05 | disposition home or self-care (01) ==
PROVIDERS: PCP Physician Assistant; Visit Provider Physician Assistant Surgical
DX: K43.6 Other and unspecified ventral hernia with obstruction, without gangrene (principal)
CPT/HCPCS: 99212

== ENCOUNTER → 2024-06-06 11:42 | Outpatient (BNVA) | payer MEDICAID, SELFPAY | PROVIDERS: PCP Physician Assistant; Visit Provider Physician Assistant Surgical | DX: Z48.815 Encounter for surgical aftercare following surgery on the digestive system (principal); Z98.890 Other specified postprocedural states | CPT/HCPCS: 99212 ==

== ENCOUNTER 2024-06-15 10:28 | Emergency (ER) | payer MEDICAID, SELFPAY ==
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
--- NOTE | ~2024-06-15 | CT_ITS ---
EXAMINATION: CT CHEST WITHOUT CONTRAST CLINICAL INFORMATION: Abnormal chest x-ray showing a right upper lobe pneumonia. COMPARISON: Chest x-ray and CT abdomen pelvis performed earlier same day. TECHNIQUE: Multidetector volumetric CT imaging of the chest was done. Axial MIP volume rendering provided. Sagittal and coronal reformatted images were obtained. This CT examination was performed using dose optimization techniques as appropriate, variously including the following: *Automated exposure control *Adjustment of mA and/or kV according to patient size (this includes techniques or standardized protocols for targeted exams where dose is matched to indication/reason for exam; i.e. extremities or head) *Use of iterative reconstruction technique FINDINGS: LUNGS: Clustered peribronchial centrilobular opacities in the right upper lobe inferolaterally, with associated groundglass attenuation, consistent with pneumonia. There are similar findings in the superior segment of the right lower lobe, and the lateral basal right lower lobe. There are no effusions. MEDIASTINUM: The mediastinum is normal. CORONARY ARTERY CALCIFICATION: None visualized on this study. PLEURA: There is no pleural effusion. No pleural mass or thickening. AXILLA: No lymphadenopathy. UPPER ABDOMEN: Refer to the dedicated abdomen and pelvis CT performed concurrently. OSSEOUS STRUCTURES: No suspicious lytic or blastic bone lesions. CT/CT chest wo IV con IMPRESSION: 1. Right upper lobe and lesser right lower lobe bronchopneumonia. 2. No pleural effusion. Electronically signed by: Guille Bradford MD 06/15/2024 02:40 PM EDT
[2024-06-15 10:56] VITALS: BP 130/82; PULSE 109; RESP 18; TEMP 36.3; O2SAT 98; BMI 34.9
[2024-06-15 11:13] LABS: MANUAL DIFF FLAG NO
[2024-06-15 11:14] LABS: Basophils Percent Auto 0.3 % (0-2); Eosinophils Percent Auto 0.1 % (0-4); Hematocrit 43.6 % (42.0-52.0); Hemoglobin 15.2 g/dl (14.0-18.0); Imm Gran Abs Auto 0.04 X10*3/uL (0.00-0.03); Imm Gran Pct Auto 0.3 % (0.0-0.4); Lymphocytes Absolute Auto 0.9 X10*3/uL (1.2-4.9); Lymphocytes Percent Auto 7.5 % (20-40); Mean Corpuscular HGB Conc 34.9 g/dl (31.0-36.0); Mean Corpuscular Hemoglobin 31.7 pg (27.0-33.0); Mean Corpuscular Volume 90.8 fL (80.0-98.0); Mean Platelet Volume 9.9 fL (9.4-12.4); Monocytes Absolute Auto 0.4 X10*3/uL (0.1-1.2); Monocytes Percent Auto 3.2 % (2-11); Neutrophils Absolute Auto 10.6 x10*3/uL (2.0-8.3); Neutrophils Percent Auto 88.6 % (45-73); Platelet Count 352 X10*3/uL (160-400); Red Cell Distribution Width 13.2 % (11.0-16.0); White Blood Count 11.9 X10*3/uL (4.8-10.8)
[2024-06-15 11:28] LABS: Alanine Aminotransferase 30 U/L (0-40); Albumin Level 4.3 g/dL (3.5-5.0); Alkaline Phosphatase 33 U/L (39-117); Anion Gap 17 (12-20); Aspartate Amino Transferase 18 U/L (5-37); Bilirubin Total 0.6 mg/dL (0.0-1.0); Blood Urea Nitrogen 10 mg/dL (9-16); Calcium 9.8 mg/dL (8.4-10.2); Carbon Dioxide 24 mmol/L (22-29); Chloride 103 mmol/L (96-108); Estimated Glomerular Filt Rate > 60; Glucose Random 184 mg/dL (60-115); Potassium 4.5 mmol/L (3.3-5.1); Sodium 139 mmol/L (135-145); Total Protein 7.5 g/dL (6.5-8.0)
[2024-06-15 11:32] LABS: IDNOW Serial# 58CA691E; Strep A Nucleic Acid Negative (Negative)
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
[2024-06-15 11:54] LABS: Influenza A PCR NEGATIVE (Negative); Influenza B PCR NEGATIVE (Negative); Resp Syncy Virus RNA Qual PCR NEGATIVE (Negative); SARS COV2 PCR INHOUSE NEGATIVE (Negative)
[2024-06-15] MEDS: 0.9 % Sodium Chloride 1,000 ML 999 ML IV (12:40)
[2024-06-15] MEDS: Ketorolac Tromethamine 15 MG/ML VIAL IVPUSH (12:42)
[2024-06-15 12:45] LABS: Lactic Acid 0.9 mmol/L (0.5-2.0)
--- OUTSIDE RECORDS SUMMARY | 2024-06-15 12:53 | XMS_ITS | Clinical Summary ---
Author Organization [facility] Address [address] [place] [address] Care Team Providers Care Telecom Network Manager Name Role Phone Jarred Hemphill Primary Care Provider [phone] Source Comments PLEASE NOTE, if this patient [...] at bedtime 90 Tablet 2 5 Active Active Problems Problem Noted Date Diagnosed Date Mild intermittent asthma ([facility]) 08/02/2015 Encounters Date Type Department Care Team Description 05/03/2024 4:00 PM EDT Office Visit [facility] [id number] [place] [address] Jarred Hemphill PA Ventral hernia [...] 02/05/2018 Tobacco Cessation Counseling (#1) 08/05/2023 022 [id number] ( season) 2023 022, 02/21/2021 Imm-Influenza (#1) 2023 Alcohol and Drug Screen 02/10/2024 08/06/19 23, 07/30/2021, 07/30/2021, Additional history exists Depression Monitoring 08/03/2024 05/03/2024 , 08/05/2022, 07/30/2021, Additional history exists Hypertension Screening (#1) 05/03/2025 Procedures Procedure Name Priority Date/Time Associated Diagnosis Comments REFERRAL SCANNED DOCUMENT 06/06/2024 3:00 AM EDT IMAGING SCANNED DOCUMENT 05/03/2024 3:00 AM EDT IMAGING SCANNED DOCUMENT 05/03/2024 3:00 AM EDT COMPREHENSIVE METABOLIC PANEL Routine 02/05/2018 10:15 AM EST Constipation, unspecified constipation type LIPID PANEL Routine 02/05/2018 10:15 AM EST Constipation, unspecified constipation type from Last 3 Months or Most Recently Relevant to Health Maintenance Results * REFERRAL SCANNED DOCUMENT (06/06/2024 3:00 AM EDT) 06/06/2024 3:00 AM EDT us Jarred MORA SCAN REFERRAL Final Result * IMAGING SCANNED DOCUMENT (05/03/2024 3:00 AM EDT) Only the most recent of2 resultswithin the time period is included. 05/03/2024 3:00 AM EDT us Jarred MORA SCAN IMAGING Final Result * (ABNORMAL) LIPID PANEL (02/05/2018 10:15 AM EST) CHOLESTEROL 212(H) 0 - 200 mg/dL [facility] HDL CHOLESTEROL 49 >40 mg/dL [facility] TC-HDLC RATIO 4.3 0 - 4.4 mg/dL [facility] TRIGLYCERIDES 122 0 - 150 mg/dL [facility] LDL CALCULATED 139(H) 0 - 100 mg/dL [facility] Blood specimen (specimen) Blood / Unknown 02/05/2018 10:15 AM EST 02/05/2018 10:25 AM EST Narrative [facility] - 02/05/2018 2:06 PM EST [employer], [place] [address] Stockroom Supervisor - Beverley Wolf MD PT ID [id number] ORD# [id number] us Jarred MORA LAB - BLOOD DRAW Edited Result - Final [facility] [place] [address] [place] [address], * (ABNORMAL) COMPRE METAB PANEL (02/05/2018 10:15 AM EST) GLUCOSE 127(H) 70 - 100 mg/dL [facility] Comment:Reference range appl icable to fasting specimens only BUN 14 5 - 25 mg/dL [facility] CREAT 1.03 0.7 - 1.3 mg/dL [facility] GLOMERULAR FILTRATION RATE > 60 [facility] Comment: If patient is -Omani, multiply result by 1.21 Chronic Kidney Disease: < 60 ml/min/1.73 square meters Kidney Failure: < 15 ml/min/1.73 square meters SODIUM 141 133 - 145 mmol/L [facility] POTASSIUM 3.9 3.5 - 5.5 mmol/L [facility] CHLORIDE 104 96 - 110 mmol/L [facility] CO2 28 21 - 32 mmol/L [facility] ANION GAP 9 3 - 11 [facility] CALCIUM 9.1 8.5 - 10.5 mg/dL [facility] ALBUMIN 3.8 3.2 - 5.0 G/dL [facility] SGPT 21 10 - 60 U/L [facility] ALK PHOS 36(L) 42 - 121 U/L [facility] TOTAL PROTEIN 6.8 6.0 - 8.0 G/dL [facility] BILI, TOTAL 0.3 0.0 - 1.4 mg/dL [facility] SGOT 7(L) 10 - 42 U/L [facility] Blood specimen (specimen) Blood / Unknown 02/05/2018 10:15 AM EST 02/05/2018 10:25 AM EST [facility] - 02/05/2018 2:06 PM EST [employer], a member of [facility] [address] [place] [address] Stockroom Supervisor - Beverley Wolf MD PT ID [id number] [place]# [id number] Jarred MORA LAB - BLOOD DRAW Edited Result - Final [facility] [address] [place] [address], from Last 3 Months or Most Recently Relevant to Health Maintenance Insurance [facility] [employer] [id number] [employer] Care Teams Telecom Network Manager Relationship Specialty Start Date End Date Jarred Hemphill PA [address] [place] [address] PCP - General Internal Medicine 01/05/18
[2024-06-15 13:37] VITALS: BP 113/72; PULSE 74; RESP 16; O2SAT 97
[2024-06-15] MEDS: iohexoL 350 MG/ML 100 ML INFUS..BTL IV (13:38)
[2024-06-15 16:19] VITALS: BP 110/67; PULSE 66; RESP 18; TEMP 36.7; O2SAT 97
[2024-06-15 16:34] VITALS: BP 110/67; PULSE 66; RESP 18; TEMP 36.7; O2SAT 97
== END 2024-06-15 16:34 | disposition home or self-care (01) ==
PROVIDERS: Physician Assistant Medical; Emergency Provider Emergency Medicine; PCP Physician Assistant
DX: J18.9 Pneumonia, unspecified organism (principal); R11.2 Nausea with vomiting, unspecified; R42 Dizziness and giddiness; R05.9 Cough, unspecified; Z03.818 Encounter for observation for suspected exposure to other biological agents ruled out; Z79.899 Other long term (current) drug therapy
CPT/HCPCS: 0241U; 36415; 71046; 71250; 74177; 80053; 83605; 85025; 87040; 87651; 96361; 96374; 99284; J1885; Q9967

== ENCOUNTER → 2024-06-15 11:53 | Outpatient (BNV) | payer MEDICAID, SELFPAY | PROVIDERS: Emergency Provider Emergency Medicine; PCP Physician Assistant; Visit Provider Radiology Diagnostic Radiology | DX: K76.0 Fatty (change of) liver, not elsewhere classified (principal); J43.2 Centrilobular emphysema; J18.0 Bronchopneumonia, unspecified organism; J18.1 Lobar pneumonia, unspecified organism | CPT/HCPCS: 71046; 71250; 74177 ==

== ENCOUNTER 2024-11-02 11:14 | Emergency (ER) | payer MEDICAID, SELFPAY ==
[2024-11-02] VITALS (7 sets, daily range): BP systolic 115–160; BP diastolic 62–112; PULSE 88–104; RESP 14–28; TEMP 36.4–36.8; O2SAT 96–100; BMI 38.1
--- NOTE | 2024-11-02 | ECG_ITS ---
Test Reason : CHEST PAIN Blood Pressure : */* mmHG Vent. Rate : 88 BPM Atrial Rate : 88 BPM P-R Int : 146 ms QRS Dur : 106 ms QT Int : 374 ms P-R-T Axes : 65 5 17 degrees QTcB Int : 452 ms Normal sinus rhythm Normal ECG No previous ECGs available Referred By: Moreno De Electronically Signed By: Eric Camara
--- NOTE | ~2024-11-02 | XR_ITS ---
EXAMINATION: XR CHEST CLINICAL INFORMATION: sob COMPARISON: 06/15/2024. TECHNIQUE: AP view of the chest was obtained. FINDINGS: The cardiac, hilar, and mediastinal contours are normal. The lungs are clear bilaterally. No pneumothorax or effusion. No focal osseous or soft tissue abnormality. XR/XR chest 1V IMPRESSION: No active pulmonary disease. Electronically signed by: Guille Bradford MD 11/02/2024 12:10 PM EDT
[2024-11-02] MEDS: Albuterol Sulfate 5 MG, Albuterol/Iprat 2.5/0.5MG 3 ML 3 ML INHALE (11:27)
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
[2024-11-02] MEDS: Magnesium Sulfate/H2O 2 GM/50 ML PIGGYBACK IV (11:50)
[2024-11-02 12:16] LABS: IDNOW Serial# 55D5AD1C; Influenza B2 Negative (Negative)
[2024-11-02 12:17] LABS: COVID-19 Test Negative (Negative); IDNOW Serial# 16C4AD1C
[2024-11-02 12:32] LABS: Venous Blood Gas Refer to POC result
[2024-11-02 12:32] LABS: VBG HCO3 23 mmol/L (22-26); VBG O2 % Saturation 81.0 %
--- NOTE | 2024-11-02 12:43 | PC.NURSE ---
Patient presents to ED with SOB and chest pain. PMH asthma. SOB started last night and has become worse this AM with left sided chest pain. O2 100% RA RR 18 EMS administered 1 albuteral and 1 duo neb enroute. Patient received 1 duo neb and IV mag in ED Patient feeling relief at this time. Blood work pending
[2024-11-02 12:46] LABS: Alanine Aminotransferase 33 U/L (0-40); Albumin Level 3.9 g/dL (3.5-5.0); Alkaline Phosphatase 28 U/L (39-117); Anion Gap 12 (12-20); Aspartate Amino Transferase 19 U/L (5-37); Blood Urea Nitrogen 13 mg/dL (9-16); Calcium 8.5 mg/dL (8.4-10.2); Carbon Dioxide 24 mmol/L (22-29); Chloride 101 mmol/L (96-108); Creatinine Clr Calc Pharmacy 159.1; Estimated Glomerular Filt Rate > 60; Potassium 3.1 mmol/L (3.3-5.1); Sodium 134 mmol/L (135-145); Total Protein 6.4 g/dL (6.5-8.0)
[2024-11-02 12:49] LABS: Hematocrit 40.9 % (42.0-52.0); Hemoglobin 14.3 g/dl (14.0-18.0); Imm Gran Abs Auto 0.06 X10*3/uL (0.00-0.03); Imm Gran Pct Auto 0.5 % (0.0-0.4); Lymphocytes Absolute Auto 2.3 X10*3/uL (1.2-4.9); MANUAL DIFF FLAG SCAN; Mean Corpuscular HGB Conc 35.0 g/dl (31.0-36.0); Mean Corpuscular Hemoglobin 31.8 pg (27.0-33.0); Mean Corpuscular Volume 90.9 fL (80.0-98.0); NRBC Abs Auto 0.000 X10*3/uL (0.0-0.012); NRBC Pct Auto 0.0 /100WBC (0.0-0.2); PLT CLUMP 1; Red Blood Count 4.50 X10*6/uL (4.60-5.80); SCAN SMEAR FLAG 1
[2024-11-02 13:20] LABS: White Blood Count 11.2 X10*3/uL (4.8-10.8)
[2024-11-02] MEDS: Potassium Chloride Packet 20 MEQ PACKET 40 MEQ PO (14:22)
[2024-11-02] MEDS: Albuterol Sulfate 2.5 MG, Albuterol/Iprat 2.5/0.5MG 3 ML 3 ML INHALE (14:57)
--- OUTSIDE RECORDS SUMMARY | 2024-11-02 15:09 | XMS_ITS | Clinical Summary ---
Author Organization [employer] Address [address] [facility] [address] [place] [address] Care Team Providers Care Order Manager Name Role Phone Unavailable Primary Care Provider Unavailabl e Encounters Date Type Department Care Team Description 08/30/2024 Population Health Risk Score [facility] (C3) Department [address] [facility] [place]NOTE 2[facility] [address] [place] [id number] Provider, Population Health Generic from Last 3 Months Social History Tobacco Use Types Packs/Day Years Used Date Smoking Tobacco: Never Assessed Sex and Gender Information Value Date Recorded Sex Assigned at Not on file Legal Sex Male 9:15 PM EDT Gender Identity Not on file Sexual Orientation Not on file Plan of Treatment Health Maintenance Due Date Last Done Comments Depression Screening 1989 HIV Screening 1989 SDOH Screening 1989 Disability Screening 1989 Alcohol/Substance Use Screening 2001 Tobacco Screening 2001 Family Planning (PISQ) 2004 HPV Vaccines (1 - Male 3-dos e series) 2004 Hepatitis C Screening 12/10/2007 DTaP/Tdap/Td Vaccines (1 - Tdap) 2008 Hepatitis B Vaccines (1 of 3 - 19+ 3-dose series) 2008 Pneumococcal Vaccine: Pediat rics (0 to 5 Years) and At-Risk Patients (6 to 49) Years (1 of 2 - PCV) 2008 COVID-19 Vaccine (1 - 2023-2 5 season) 2024 Influenza Vaccine (#1) 2024 Zoster Vaccines (1 of 2) 12/10/2039 RSV Patients and Pa tients Aged 60 years or older (1 - 1-dose 75+ series) 2064 HIB Vaccines Aged Out No longer eligi ble based on patient's age to complete this topic Hepatitis A Vaccines Aged Out No long er eligible based on patient's age to complete this topic IPV Vaccines Aged Out No longer eligi ble based on patient's age to complete this topic Meningococcal B Vaccine Aged Out No l onger eligible based on patient's age to complete this topic Meningococcal Vaccine Aged Out No linda kathleen eligible based on patient's age to complete this topic RSV under 20 months Aged Out No longe r eligible based on patient's age to complete this topic Rotavirus Vaccines Aged Out No longer eligible based on patient's age to complete this topic
--- OUTSIDE RECORDS SUMMARY | 2024-11-02 15:09 | XMS_ITS | Clinical Summary ---
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 5 Active BANOPHEN 25 mg tablet TAKE 1 TABLET BY MOUTH EVERY 8 HOURS NEEDED FOR NAUSEA VOMITING 5 Active pantoprazole (PROTONIX) 20 mg EC tabletIndication s:Gastroesophage al reflux disease with esophagitis without hemorrhage Take 1 Tablet by mouth 2 (two) times daily Take 1 tab PO BID for 2 weeks and then STOP USING.. 60 Tablet 2 5 Active pantoprazole (PROTONIX) 20 mg EC tabletIndication s:Gastroesophage al reflux disease with esophagitis without hemorrhage Take 1 tab PO BID for 2 weeks and then STOP USING.. 60 Tablet 2 5 10/07/19 25 Discontin ued(Dupli oliver (E-Cancel Not Sent)) Active Problems Problem Noted Date Diagnosed Date Mild intermittent asthma ([facility]) 08/02/2015 Encounters Date Type Department Care Team Description 09/15/2024 5:20 PM EDT Telemedicine Visit [address] [phone] Child, NATALIYA Kline from Last 3 Months Family History Medical [...] Sign Reading Time Taken Comments Blood Pressure 118/81 07/06/2024 4:30 PM EDT Pulse 85 07/06/2024 4:30 PM EDT Temperature 36.8 C (98.3 F) 05/03/2024 4:13 PM EDT Respiratory Rate 16 07/06/2024 4:30 PM EDT Oxygen Saturation 95% 07/06/2024 4:30 PM EDT Inhaled Oxygen Concentration - - Weight 107.5 kg (237 lb) 07/06/2024 4:30 PM EDT Height 172.7 cm (5' 8 ) 07/06/2024 4:30 PM EDT Body Mass Index 36.04 07/06/2024 4:30 PM EDT Plan of Treatment Upcoming Encounters Date Type Department Care Team (Late st Contact Info) Description 12/01/2024 3:00 PM EDT Office Visit [facility] [address] [place] [phone] Jarred Hemphill PA [address] [place] [address] Health Maintenance Due Date Last Done Comments Anxiety Screening 1989 Hepatitis C Screening 1989 HIV Screening 2004 Imm-DTaP/Tdap/Td (1 - Tdap) 2008 Imm-Hepatitis B (1 of 3 - 19 + 3-dose series) 2008 Imm-Pneumococcal (1 of 2 - PCV) 2008 Imm-HPV (1 - 3-dose SCDM series) 2016 Diabetes Screening 02/05/2021 02/05/2018 Lipid Screening 02/05/2021 02/05/2018 Annual Wellness (Adult): Ind icated (All Coverage) 07/30/2022 07/30/2021, 02/05/2018 Tobacco Cessation Counseling (#1) 08/05/2023 022 Alcohol and Drug Screen 02/10/2024 08/06/19 23, 07/30/2021, 07/30/2021, Additional history exists Depression Monitoring 08/03/2024 05/03/2024 , 08/05/2022, 07/30/2021, Additional history exists [id number] ( season) 2024 022, 02/21/2021 Imm-Influenza (#1) 2024 Hypertension Screening (#1) 07/06/2025 Procedures Procedure Name Priority Date/Time Associated Diagnosis Comments OTHER ORDERS SCANNED DOCUMENT 09/07/2024 3:00 AM EDT COMPREHENSIVE METABOLIC PANEL Routine 02/05/2018 10:15 AM EST Constipation, unspecified constipation type LIPID PANEL Routine 02/05/2018 10:15 AM EST Constipation, unspecified constipation type from Last 3 Months or Most Recently Relevant to Health Maintenance Results * OTHER ORDERS SCANNED DOCUMENT (09/07/2024 3:00 AM EDT) 09/07/2024 3:00 AM EDT us Jarred MORA SCAN OTHER ORDERS Final Result * (ABNORMAL) LIPID PANEL (02/05/2018 10:15 AM EST) CHOLESTEROL 212(H) 0 - 200 mg/dL [facility] HDL CHOLESTEROL 49 >40 mg/dL [facility] TC-HDLC RATIO 4.3 0 - 4.4 mg/dL [facility] TRIGLYCERIDES 122 0 - 150 mg/dL [facility] LDL CALCULATED 139(H) 0 - 100 mg/dL [facility] Blood specimen (specimen) Blood / Unknown 02/05/2018 10:15 AM EST 02/05/2018 10:25 AM EST Narrative [facility] - 02/05/2018 2:06 PM EST [facility] [employer] [address] 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 - Beverley Wolf MD PT ID [id number] ORD# [id number] Jarred MORA LAB - BLOOD DRAW Edited Result - Final Performing Organization Address City/State/[facility] [place] [address], * (ABNORMAL) COMPRE METAB PANEL (02/05/2018 10:15 AM EST) GLUCOSE 127(H) 70 - 100 mg/dL [facility] Comment:Reference range appl icable to fasting specimens only BUN 14 5 - 25 mg/dL [facility] CREAT 1.03 0.7 - 1.3 mg/dL [facility] GLOMERULAR FILTRATION RATE > 60 [facility] Comment: If patient is -[place], multiply result by 1.21 Chronic Kidney Disease: [...] HOSPITAL SGPT 21 10 - 60 U[facility] ALK PHOS 36(L) 42 - 121 U/L [facility] TOTAL PROTEIN 6.8 6.0 - 8.0 G/dL [facility] BILI, TOTAL 0.3 0.0 - 1.4 mg/dL [facility] SGOT 7(L) 10 - 42 U/L [facility] Blood specimen (specimen) Blood / Unknown 02/05/2018 10:15 AM EST 02/05/2018 10:25 AM EST Narrative [facility] - 02/05/2018 2:06 PM EST [employer], [place] [address] 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 Helper - Beverley Wolf MD PT ID [id number] ORD# [id number] Jarred [facility] - BLOOD DRAW Edited Result - Final Performing Organization Address City/State/[facility] Co de Phone Number [address] [address], from Last 3 Months or Most Recently Relevant to Health Maintenance Insurance [id number] [employer] Care Teams Supervisor [employer] Relationship Specialty Start Date End Date Kanchan, Jarred, PA [address] [place] [address] PCP - General Internal Medicine 01/05/18
== END 2024-11-02 15:47 | disposition home or self-care (01) ==
PROVIDERS: Emergency Provider Emergency Medicine; PCP Physician Assistant
DX: J45.901 Unspecified asthma with (acute) exacerbation (principal); E87.1 Hypo-osmolality and hyponatremia; E87.6 Hypokalemia; Z79.899 Other long term (current) drug therapy
CPT/HCPCS: 71045; 80053; 82803; 85025; 87502; 87635; 93005; 94640; 96365; 96375; 99284; 99285; J2919; J3475

== ENCOUNTER → 2024-11-02 11:31 | Outpatient (BNV) | payer MEDICAID, SELFPAY | PROVIDERS: Emergency Provider Emergency Medicine; PCP Physician Assistant; Visit Provider Internal Medicine Cardiovascular Disease | DX: R07.89 Other chest pain (principal) | CPT/HCPCS: 93010 ==

== ENCOUNTER → 2024-11-02 11:54 | Outpatient (BNV) | payer MEDICAID, SELFPAY | PROVIDERS: Emergency Provider Emergency Medicine; PCP Physician Assistant; Visit Provider Radiology Diagnostic Radiology | DX: R06.02 Shortness of breath (principal) | CPT/HCPCS: 71045 ==

== ENCOUNTER 2024-12-03 10:35 | Emergency (ER) | payer MEDICAID, SELFPAY ==
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
--- NOTE | ~2024-12-03 | XR_ITS ---
CLINICAL HISTORY: right lung pain 1 view chest x-ray Comparison: CR/SR - XR CHEST 1 VIEW - 11/02/24 11:[address]/LA/SR - CT CHEST WO IV CON - 06/15/24 14:10 EDT Findings: There are patchy opacities of the bilateral lungs. Heart size is normal. No acute fracture. IMPRESSION: Patchy opacities of the bilateral lungs. Pneumonia can not be excluded. This document has been electronically signed by: Abdirashid Traore MD on 12/03/2024 12:39:49
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
[2024-12-03 10:40] VITALS: BP 116/68; PULSE 81; RESP 18; TEMP 36.2; O2SAT 97; BMI 38.0
--- OUTSIDE RECORDS SUMMARY | 2024-12-03 10:53 | XMS_ITS | Encounter Summary ---
Author Organization [facility] Address [address] [place] [address] Care Team Providers Care Net Making Supervisor Name Role Phone Jarred Hemphill Primary Care Provider [phone] Reason for Visit * Reason Comments Encounter Created in Error Encounter Details Date Type Department Care Team ([facility] Contact Info) Description 11/17/2024 Patient Outreach [facility] [address] [place] [phone] JonesAutumn [address] [place] [address] Social History Tobacco Use Types Packs/Day Years Used Date Smoking Tobacco: Some Days Smokeless Tobacco: Never Alcohol Use Standard Drinks/Week Comments Yes 0 [...] on file documented as of this encounter Miscellaneous Notes * Patient Instructions - Autumn Jones - 11/17/2024 11:07 AM EDT If you are not able to keep your appointment please call 24-48 hours before your appointment to cancel or reschedule. documented in this encounter Plan of Treatment Not on file documented as of this encounter Visit Diagnoses Not on filedocumented in this encounter Additional Health Concerns Assessment Noted Time PHQ-9 Depression Total Score: 8 05/04/19 25 4:09 PM PDT documented as of this encounter Care Teams Net Making Supervisor Relationship Specialty Start Date End Date Jarred Hemphill PA [address] [place] [address] PCP - General Internal Medicine 01/05/18 documented as of this encounter
--- OUTSIDE RECORDS SUMMARY | 2024-12-03 10:53 | XMS_ITS | Clinical Summary ---
Author Organization [employer] Address [address] [facility] [facility] [address] [place] [address] Care Team Providers Care Plate Worker Name Role Phone Unavailable Primary Care Provider Unavailabl e Social History Tobacco Use Types Packs/Day Years [...]
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
[2024-12-03 11:14] LABS: IDNOW Serial# 58CA691E; Influenza B2 Negative (Negative)
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
--- NOTE | 2024-12-03 11:23 | ECG_ITS ---
Test Reason : UPPER RESPIRATORY Blood Pressure : */* mmHG Vent. Rate : 83 BPM Atrial Rate : 83 BPM P-R Int : 150 ms QRS Dur : 106 ms QT Int : 382 ms P-R-T Axes : 67 11 9 degrees QTcB Int : 448 ms Normal sinus rhythm Normal ECG When compared with ECG of 02-Nov-2024 11:31, No significant change was found Referred By: Yasmin Barrientos Electronically Signed By: MARGARITO EDWARDS MD
[2024-12-03 11:31] LABS: COVID-19 Test Invalid (Negative); IDNOW Serial# 6674DD1D
[2024-12-03 12:01] LABS: MANUAL DIFF FLAG NO
[2024-12-03 12:03] LABS: Hematocrit 42.8 % (42.0-52.0); Hemoglobin 14.7 g/dl (14.0-18.0); Imm Gran Abs Auto 0.03 X10*3/uL (0.00-0.03); Imm Gran Pct Auto 0.3 % (0.0-0.4); Lymphocytes Absolute Auto 1.1 X10*3/uL (1.2-4.9); Mean Corpuscular HGB Conc 34.3 g/dl (31.0-36.0); Mean Corpuscular Hemoglobin 31.2 pg (27.0-33.0); Mean Corpuscular Volume 90.9 fL (80.0-98.0); NRBC Abs Auto 0.000 X10*3/uL (0.0-0.012); NRBC Pct Auto 0.0 /100WBC (0.0-0.2); Platelet Count 338 X10*3/uL (160-400); Red Blood Count 4.71 X10*6/uL (4.60-5.80); White Blood Count 10.6 X10*3/uL (4.8-10.8)
[2024-12-03 12:11] LABS: D Dimer High Sensitivity < 150 NG/ML
[2024-12-03 12:19] LABS: COVID-19 Test Negative (Negative); IDNOW Serial# 55D5AD1C
[2024-12-03 12:19] LABS: Anion Gap 14 (12-20); Blood Urea Nitrogen 14 mg/dL (9-16); Calcium 8.8 mg/dL (8.4-10.2); Carbon Dioxide 24 mmol/L (22-29); Chloride 106 mmol/L (96-108); Creatinine Clr Calc Pharmacy 146.2; Estimated Glomerular Filt Rate > 60; Potassium 4.1 mmol/L (3.3-5.1); Sodium 140 mmol/L (135-145)
[2024-12-03 12:28] LABS: Troponin-I High Sensitivity 4.7 ng/L (<3.5-35.0)
[2024-12-03 14:24] VITALS: BP 116/73; PULSE 68; RESP 18; TEMP 36.6; O2SAT 99
[2024-12-03 14:42] VITALS: O2SAT 99
--- NOTE | 2024-12-03 14:56 | PC.NURSE ---
resting quietly in room w/ antibiotics infusing. awaiting ct scan at this time, call espinosa within reach.
[2024-12-03] MEDS: iohexoL 350 MG/ML 100 ML INFUS..BTL IV (15:27)
[2024-12-03 17:27] VITALS: BP 126/71; PULSE 83; RESP 20; TEMP 36.6; O2SAT 96
[2024-12-03 17:53] LABS: Erythrocyte Sedimentation Rate 7 MM/HR (0-15)
[2024-12-03 18:31] VITALS: BP 126/71; PULSE 83; RESP 20; TEMP 36.6; O2SAT 96
== END 2024-12-03 18:31 | disposition home or self-care (01) ==
PROVIDERS: Physician Assistant; Emergency Provider Emergency Medicine Emergency Medical Services; PCP Physician Assistant
DX: J41.1 Mucopurulent chronic bronchitis (principal); R05.9 Cough, unspecified; R06.02 Shortness of breath; I31.9 Disease of pericardium, unspecified; R07.89 Other chest pain; F17.210 Nicotine dependence, cigarettes, uncomplicated; Z79.899 Other long term (current) drug therapy
CPT/HCPCS: 36415; 71045; 71275; 80048; 84484; 85025; 85379; 85652; 86140; 87040; 87502; 87635; 93005; 96365; 96375; 99285; J1885; J1956; Q9967

== ENCOUNTER → 2024-12-03 10:43 | Outpatient (BNV) | payer MEDICAID, SELFPAY | PROVIDERS: Emergency Provider Emergency Medicine Emergency Medical Services; PCP Physician Assistant; Visit Provider Nuclear Medicine | DX: R07.81 Pleurodynia (principal); K44.9 Diaphragmatic hernia without obstruction or gangrene; R91.8 Other nonspecific abnormal finding of lung field | CPT/HCPCS: 71045; 71275 ==

== ENCOUNTER → 2024-12-03 11:23 | Outpatient (BNV) | payer MEDICAID, SELFPAY | PROVIDERS: Emergency Provider Emergency Medicine Emergency Medical Services; PCP Physician Assistant; Visit Provider Internal Medicine Cardiovascular Disease | DX: R07.9 Chest pain, unspecified (principal) | CPT/HCPCS: 93010 ==

== ENCOUNTER 2025-01-10 14:08 | Outpatient (AMB) | payer MEDICAID, SELFPAY ==
[2025-01-10 14:11] VITALS: BP 102/58; PULSE 66; BMI 37.1
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
--- OUTSIDE RECORDS SUMMARY | 2025-01-10 16:09 | XMS_ITS | Clinical Summary ---
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 Role Phone Unavailable Primary Care Provider [...] Comments Depression Screening 1989 HIV Screening 1989 Lipid Panel 1989 SDOH Screening 1989 Disability Screening 1989 Alcohol/Substance Use Screening 2001 Tobacco Screening 2001 Family Planning (PISQ) 2004 HPV Vaccines (1 - Male 3-dos e series) 2004 Hepatitis C Screening 12/10/2007 Hepatitis A Vaccines (1 of 2 - Risk 2-dose series) 2008 Hepatitis B Vaccines (1 of 3 - 19+ 3-dose series) 2008 COVID-19 Vaccine (1 - 2024-2 6 season) 2024 DTaP/Tdap/Td Vaccines (2 - T d or Tdap) 12/01/2034 12/01/2024 Zoster Vaccines (1 of 2) 12/10/2039 RSV Patients and Pa tients Aged 60 years or older (1 - 1-dose 75+ series) 2064 Influenza Vaccine Completed 12/01/2024 Pneumococcal Vaccine: Pediat rics (0 to 5 Years) and At-Risk Patients (6 to 49) Years Completed 12/01/2024 HIB Vaccines Aged Out No longer eligi [...]
== END 2025-01-10 14:53 | disposition home or self-care (01) ==
LOC: HO.HCS 14:09
PROVIDERS: PCP Physician Assistant
DX: R07.9 Chest pain, unspecified (principal); Z82.49 Family history of ischemic heart disease and other diseases of the circulatory system
CPT/HCPCS: 93010; 99204

== ENCOUNTER → 2025-01-10 14:08 | Outpatient (BNVA) | payer MEDICAID, SELFPAY | PROVIDERS: PCP Physician Assistant | DX: R07.89 Other chest pain (principal); Z82.49 Family history of ischemic heart disease and other diseases of the circulatory system | CPT/HCPCS: 93005; 99212 ==

== ENCOUNTER 2025-02-03 10:52 | Emergency (ER) | payer MEDICAID, SELFPAY ==
--- NOTE | ~2025-02-03 | US_ITS ---
EXAMINATION: US ABDOMEN LIMITED HISTORY: epigastric/RUQ pain, N/V TECHNIQUE: Real-time grayscale ultrasound imaging of the gallbladder was performed and images were reviewed. COMPARISON: Correlation is made with a CT of the abdomen with contrast dated 06/15/2024. FINDINGS: The gallbladder is unremarkable, without evidence of calculi, wall thickening, or pericholecystic fluid. There is no sonographic Mayes sign. The common bile duct is not well visualized. US/US abdomen limited IMPRESSION: No evidence of cholelithiasis or acute cholecystitis. Electronically signed by: Ralph Hartman MD 02/03/2025 12:00 PM [facility]
--- NOTE | ~2025-02-03 | XR_ITS ---
EXAMINATION: XR CHEST 2 VIEWS HISTORY: sob COMPARISON: Comparison is made with the prior examination dated 12/03/2024. FINDINGS: PA and lateral views of the chest are submitted. The lungs are expanded and clear. There is no pleural effusion, pneumothorax, or pulmonary vascular congestion. The heart is normal in size. The bones are intact. A metallic density is again seen in the right upper quadrant of the abdomen. XR/XR chest 2V IMPRESSION: No acute cardiopulmonary abnormality. Electronically signed by: Ralph Hartman MD 02/03/2025 11:38 AM EST
[2025-02-03 11:08] VITALS: BP 114/77; PULSE 113; RESP 22; TEMP 37; O2SAT 96; BMI 36.6
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
--- NOTE | 2025-02-03 11:10 | ECG_ITS ---
Test Reason : cp Blood Pressure : */* mmHG Vent. Rate : 123 BPM Atrial Rate : 123 BPM P-R Int : 138 ms QRS Dur : 94 ms QT Int : 308 ms P-R-T Axes : 65 -3 53 degrees QTcB Int : 440 ms Sinus tachycardia Nonspecific T wave abnormality Abnormal ECG When compared with ECG of 03-Dec-2024 11:35, Non-specific change in ST segment in Anterior leads T wave inversion now evident in Anterior leads Referred By: Yasmin Barrientos Electronically Signed By: MARGARITO EDWARDS MD
[2025-02-03 11:45] LABS: MANUAL DIFF FLAG NO
[2025-02-03 11:53] LABS: Hematocrit 43.1 % (42.0-52.0); Hemoglobin 15.1 g/dl (14.0-18.0); Imm Gran Abs Auto 0.04 X10*3/uL (0.00-0.03); Imm Gran Pct Auto 0.4 % (0.0-0.4); Lymphocytes Absolute Auto 0.9 X10*3/uL (1.2-4.9); Mean Corpuscular HGB Conc 35.0 g/dl (31.0-36.0); Mean Corpuscular Hemoglobin 31.5 pg (27.0-33.0); Mean Corpuscular Volume 90.0 fL (80.0-98.0); NRBC Abs Auto 0.000 X10*3/uL (0.0-0.012); NRBC Pct Auto 0.0 /100WBC (0.0-0.2); Platelet Count 302 X10*3/uL (160-400); Red Blood Count 4.79 X10*6/uL (4.60-5.80); White Blood Count 9.6 X10*3/uL (4.8-10.8)
[2025-02-03 12:07] LABS: Alanine Aminotransferase 35 U/L (0-40); Albumin Level 4.4 g/dL (3.5-5.0); Alkaline Phosphatase 30 U/L (39-117); Anion Gap 13 (12-20); Aspartate Amino Transferase 19 U/L (5-37); Blood Urea Nitrogen 11 mg/dL (9-16); Calcium 9.2 mg/dL (8.4-10.2); Carbon Dioxide 24 mmol/L (22-29); Chloride 104 mmol/L (96-108); Creatinine Clr Calc Pharmacy 147.1; Estimated Glomerular Filt Rate > 60; Lipase 5 U/L (8-78); Magnesium 1.8 mg/dL (1.6-2.6); Potassium 4.0 mmol/L (3.3-5.1); Sodium 137 mmol/L (135-145); Total Protein 6.8 g/dL (6.5-8.0)
[2025-02-03 12:17] LABS: Troponin-I High Sensitivity < 2.7 ng/L (<3.5-35.0)
[2025-02-03 12:42] LABS: Resp Syncy Virus RNA Qual PCR NEGATIVE (Negative); SARS COV2 PCR INHOUSE NEGATIVE (Negative)
--- OUTSIDE RECORDS SUMMARY | 2025-02-03 13:03 | XMS_ITS | Clinical Summary ---
Author Organization [employer] Address [address] [place] [address] Care Team Providers Care Insecticide Supervisor Name Role Phone Unavailable Primary Care Provider [...]
[2025-02-03 13:07] VITALS: BP 128/77; PULSE 101; RESP 18; TEMP 39.1; O2SAT 97
[2025-02-03 15:19] VITALS: BP 106/63; PULSE 95; RESP 16; TEMP 36.5; O2SAT 96
[2025-02-03 15:36] VITALS: TEMP 37.6
[2025-02-03 16:37] VITALS: BP 103/62; PULSE 95; RESP 18; TEMP 37.6; O2SAT 98
== END 2025-02-03 16:41 | disposition home or self-care (01) ==
PROVIDERS: Physician Assistant; Emergency Provider Emergency Medicine; PCP Dentist General Practice
DX: J10.1 Influenza due to other identified influenza virus with other respiratory manifestations (principal); R10.11 Right upper quadrant pain; R07.9 Chest pain, unspecified; R06.00 Dyspnea, unspecified; M79.10 Myalgia, unspecified site; R00.0 Tachycardia, unspecified; R11.2 Nausea with vomiting, unspecified; R05.9 Cough, unspecified; F17.200 Nicotine dependence, unspecified, uncomplicated; Z71.6 Tobacco abuse counseling
CPT/HCPCS: 36415; 71046; 76705; 80048; 80076; 83690; 83735; 84484; 85025; 87637; 93005; 96361; 96374; 96375; 99284; J0131; J1885

== ENCOUNTER → 2025-02-03 11:10 | Outpatient (BNV) | payer MEDICAID, SELFPAY | PROVIDERS: Emergency Provider Emergency Medicine; PCP Dentist General Practice; Visit Provider Internal Medicine Cardiovascular Disease | DX: R00.0 Tachycardia, unspecified (principal) | CPT/HCPCS: 93010 ==

== ENCOUNTER → 2025-02-03 11:11 | Outpatient (BNV) | payer MEDICAID, SELFPAY | PROVIDERS: PCP Family Medicine; Visit Provider Radiology Diagnostic Radiology | DX: R10.13 Epigastric pain (principal); R10.11 Right upper quadrant pain; R11.2 Nausea with vomiting, unspecified; R06.02 Shortness of breath | CPT/HCPCS: 71046; 76705 ==